=== PATIENT | male | born 1965 | race Caucasian/White ===

== ENCOUNTER 2023-07-20 10:06 | Outpatient (REF) | payer OTHER, SELFPAY ==
--- NOTE | ~2023-07-20 | FL_ITS ---
EXAMINATION: FL barium swallow CLINICAL INFORMATION: Dysphagia. History of endoscopic dilation procedure COMPARISON: None TECHNIQUE: Fluoroscopic air contrast upper GI examination was performed utilizing standard techniques with thin and thick barium and effervescent granules. Numerous spot images were obtained. FINDINGS: Median sternotomy wires are present. Lateral cine images of the oropharynx and hypopharynx demonstrate normal swallow mechanism with normal epiglottic inversion and soft palate elevation. No tracheal penetration, glottic or subglottic aspiration identified. No nasopharyngeal reflux present. Hypopharyngeal structures appear normal without evidence of mass or diverticulum. 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 Dual and single contrast images of the esophagus demonstrate a patulous esophagus with a corkscrew appearance. There is severe narrowing of the lower esophageal sphincter with the bird beak sign present, consistent with achalasia. No obvious mass, or ulcerations identified. FLUOROSCOPY TIME: 3 minutes 34 seconds Number of Spot Images: 7 Number of Cine: 13 DOSE AREA PRODUCT: 2783 uGy-m2 (microgray-meter squared) FL/FL barium swallow IMPRESSION: 1. 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 Esophageal dysmotility. 3. Lower esophageal sphincter achalasia, versus benign stricture. Favor achalasia given appearance. Recommend referral for endoscopic evaluation. 4. Presence of sternotomy wires consistent with prior history of coronary bypass surgery This procedure was performed by Kp Rainey PA-C, and supervised by Dr. Hong
== END 2023-07-20 10:07 | disposition home or self-care (01) ==
LOC: HO.XRAY 10:06
PROVIDERS: PCP Internal Medicine; Visit Provider Internal Medicine
DX: R13.10 Dysphagia, unspecified (principal)
CPT/HCPCS: 74220

== ENCOUNTER → 2023-07-20 10:23 | Outpatient (BNV) | payer OTHER, SELFPAY | PROVIDERS: PCP Internal Medicine; Visit Provider Radiology Diagnostic Radiology | DX: R13.10 Dysphagia, unspecified (principal) | CPT/HCPCS: 74221 ==